=== PATIENT | female | born 1960 | race Caucasian/White ===

== ENCOUNTER → 2017-01-14 | Outpatient (CLI) | payer OTHER ==
[~2017-01-14] MED LIST: CHOL2000 PO; CLX20 PO; GABA1CAP5 PO; GLYC2TAB6 PO; HYDR0.5T PO; MELO15TA3 PO; PANT1TAB48 PO
--- NOTE | 2017-01-14 15:26 | DIAGNOSTIC IMAGING REPORT ---
LEFT FOOT 2 VIEWS CLINICAL HISTORY: First toe pain. Rheumatoid arthritis. COMPARISON: None. DISCUSSION: No acute fractures are visualized. Arthritic changes are present the level the first metatarsal phalangeal joint. There are lateral osteophytes. There are no erosive changes. IMPRESSION: Degenerative type changes at the level the first metatarsal phalangeal joint. No acute fractures. Electronically signed by: Roshan Montano M.D. 01/14/2017 3:25 PM Dictated Date/Time: 01/14/2017 3:24 PM
[2017-01-14 15:39] LABS: BASO % 0.6 %; BASO ABS # 0.05 K/uL (0-0.2); COMPLETE YES; EOS % 2.2 %; HEMATOCRIT 40.3 % (37-47); IG% 0.2 %; LYMPH % 29.8 %; LYMPH ABS # 2.62 K/uL (1.2-3.4); MEAN CELL VOLUME 92.2 fL (80-100); MEAN CORPUSCULAR HEMOGLOBIN 31.8 pg (25-34); MEAN CORPUSCULAR HGB CONC 34.5 g/dl (32-36); MEAN PLATELET VOLUME 10.6 fL (7.4-10.4); MONO % 4.2 %; PLATELET COUNT 316 K/uL (130-400); RED BLOOD COUNT 4.37 M/uL (4.2-5.4)
[2017-01-14 16:07] LABS: ALT/SGPT 16 U/L (12-78); BLOOD UREA NITROGEN 12 mg/dl (7-18); BUN/CREATININE RATIO 14.8 (10-20); CALCIUM 9.6 mg/dl (8.5-10.1); CARBON DIOXIDE 28 mmol/L (21-32); CHLORIDE 109 mmol/L (98-107); CREATININE 0.83 mg/dl (0.60-1.20); GLUCOSE 82 mg/dl (70-99); SODIUM 142 mmol/L (136-145)
[2017-01-14 16:10] LABS: ALB/GLOB RATIO 1.2 (0.9-2); ALKALINE PHOSPHATASE 50 U/L (45-117); AST/SGOT 15 U/L (15-37)
== END | disposition home or self-care (01) ==
LOC: C.RAD 14:54
PROVIDERS: ATTEND Internal Medicine
DX: M05.79 Rheumatoid arthritis with rheumatoid factor of multiple sites without organ or systems involvement (principal); Z79.899 Other long term (current) drug therapy

== ENCOUNTER 2020-03-16 11:08 | Inpatient (IN) ==
--- OUTSIDE RECORDS SUMMARY | 2020-03-16 11:10 | External Medical Summary | Continuity of Care Document ---
:1960 Author Name Chelsea Burdick, Provider Address Unavailable Unavailable , Care Team Providers Name Role Phone Catrachito Linder DO [email or web address] [email or web address] [email or web address] Unavailable Unavailable Unavailable Unavailable Unavailable Problems Nicotine dependence (305.1) (F17.200) SOB (shortness of breath) (786.05) (R06.02) Chronic cough (786.2) (R05) Allergies and Adverse Reactions Penicillins (Allergy) Medications Gabapentin 400 MG Oral Capsule; TAKE 1 CAPSULE daily Refills: 0 Robinul-Forte 2 MG TABS; TAKE 1 TABLET DAILY. Refills: 0 Hydroxychloroquine Sulfate 200 MG Oral Tablet; TAKE 1 TABLET DAILY WITH FOOD. Refills: 0 Pantoprazole Sodium 40 MG Oral Tablet Delayed Release; TAKE 1 TABLET DAILY Refills: 0 Citalopram Hydrobromide 20 MG Oral Tablet; TAKE 1 AND 1/2 TA BLETS DAILY. Refills: 0 Meloxicam 15 MG Oral Tablet; TAKE 1 TABLET DAILY. Refills: 0 Methotrexate 2.5 MG Oral Tablet; TAKE 5 TABLET WEEKLY Refills: 0 Folic Acid 1 MG Oral Tablet; TAKE 1 TABLET DAILY Refills: 0 Advair Diskus 250-50 MCG/DOSE Inhalation Aerosol Powder Breath Activated; INHALE 1 PUFF TWICE DAILY. Refills: 0 Multivitamins TABS; TAKE 1 TABLET DAILY. Refills: 0 Ventolin 90 MCG/ACT AERS; INHALE 1 TO 2 PUFFS EVERY 4 TO 6 H OURS NEEDED. Refills: 0 Procedures History of Appendectomy Status: Complete d History of Hysterectomy Status: Complete d History of Neck Surgery Status: Complete d Immunizations Immunizations not documented Social History - Smoking Status Smokes tobacco daily Plan of Treatment Planned Observations Planned Goals not documented Results No Known Results Results not documented
--- OUTSIDE RECORDS SUMMARY | 2020-03-16 11:10 | External Medical Summary | Continuity of Care Document ---
:1960 Author Name Chelsea Burdick, Provider Address Unavailable Unavailable , Care Team Providers Name Role Phone Catrachito Linder DO [email or web address] Unavailable Unavailable Unavailable Unavailable Unavailable Problems Chronic cough (786.2) (R05) SOB (shortness of breath) (786.05) (R06.02) Nicotine dependence (305.1) (F17.200) Allergies and Adverse Reactions Penicillins (Allergy) Medications Ventolin 90 MCG/ACT AERS; INHALE 1 TO 2 PUFFS EVERY 4 TO 6 H OURS NEEDED. Refills: 0 Multivitamins TABS; TAKE 1 TABLET DAILY. Refills: 0 Advair Diskus 250-50 MCG/DOSE Inhalation Aerosol Powder Breath Activated; INHALE 1 PUFF TWICE DAILY. Refills: 0 Folic Acid 1 MG Oral Tablet; TAKE 1 TABLET DAILY Refills: 0 Methotrexate 2.5 MG Oral Tablet; TAKE 5 TABLET WEEKLY Refills: 0 Meloxicam 15 MG Oral Tablet; TAKE 1 TABLET DAILY. Refills: 0 Citalopram Hydrobromide 20 MG Oral Tablet; TAKE 1 AND 1/2 TA BLETS DAILY. Refills: 0 Pantoprazole Sodium 40 MG Oral Tablet Delayed Release; TAKE 1 TABLET DAILY Refills: 0 Hydroxychloroquine Sulfate 200 MG Oral Tablet; TAKE 1 TABLET DAILY WITH FOOD. Refills: 0 Robinul-Forte 2 MG TABS; TAKE 1 TABLET DAILY. Refills: 0 Gabapentin 400 MG Oral Capsule; TAKE 1 CAPSULE daily Refills: 0 Procedures History of Appendectomy Status: Complete d History of Hysterectomy Status: Complete d History of Neck Surgery Status: Complete d Immunizations Immunizations not documented Social History - Smoking Status Smokes tobacco daily Plan of Treatment Planned Observations Planned Goals not documented Results No Known Results Results not documented
[2020-03-16] MEDS ORDERED: OPTIRAY 320 125ml IV PRN (11:23)
[2020-03-16 11:28] LABS: Basophils # (auto) 0.04 K/uL (0-0.2); Basophils % (auto) 0.5 %; Eosinophils # (auto) 0.12 K/uL (0-0.5); Eosinophils % (auto) 1.4 %; Hematocrit (blood only) 45.9 % (37-47); Hemoglobin 15.5 g/dL (12.0-16.0); Immature Granulocytes # (auto) 0.01 K/uL (0.00-0.02); Immature Granulocytes % (auto) 0.1 %; Lymphocytes # (auto) 2.38 K/uL (1.2-3.4); Lymphocytes % (auto) 28.6 %; Mean Corpuscular Hgb Conc 33.8 g/dL (32-36); Mean Corpuscular Volume 94.8 fL (80-100); Mean Platelet Volume 10.8 fL (7.4-10.4); Monocytes # (auto) 0.51 K/uL (0.11-0.59); Monocytes % (auto) 6.1 %; Neutrophils # (auto) 5.27 K/uL (1.4-6.5); Neutrophils % (auto) 63.3 %; Platelet Count 332 K/uL (130-400); RDW Coefficient of Variation 13.6 % (11.5-14.5); RDW Standard Deviation 46.9 fL (36.4-46.3); Red Blood Count 4.84 M/uL (4.2-5.4); White Blood Count 8.33 K/uL (4.8-10.8)
[2020-03-16] MEDS ORDERED: SODIUM CHLORIDE 0.9% 1000ML 1,000 ML IV SCH ×3 (11:30→15:18)
--- NOTE | 2020-03-16 11:34 | CT Scan Report ---
CT head/brain wo con CT DOSE: HISTORY: Mental status change Stroke evaluation TECHNIQUE: Multiaxial CT images of the head were performed without the use of intravenous contrast. A dose lowering technique was utilized adhering to the principles of ALARA. Comparison: 09/20/2013 Findings: The paranasal sinuses and mastoid air cells are clear. The calvarium and skull base are int act. The ventricles and sulci are within normal limits. There is no mass, hematoma, midline shift, or acute infarct. Impression: No acute intracranial abnormality. ACT 112: Negative or not required by law. The above report was generated using voice recognition software. It may contain grammatical, syntax or spelling errors. Electronically signed by: Jg Verdin M.D. 03/16/2020 11:33 AM
--- NOTE | 2020-03-16 11:39 | CT Scan Report ---
CT angio neck with con HISTORY: Mental status change Stroke evaluation TECHNIQUE: Multiaxial CT angiography of the neck was performed IV contrast: 100 cc nonionic All maya urements were calculated based on NASCET criteria. Maximum intensity projection images were also obt ained. A dose lowering technique was utilized adhering to the principles of ALARA. COMPARISON STUDY: None. FINDINGS: The aortic arch and proximal great vessels are widely patent. There is no significant sten osis, occlusion, or dissection identified within the bilateral common carotid, internal carotid, or v ertebral arteries. IMPRESSION: No significant stenosis, occlusion, or dissection identified within the carotid or vertebral arteries . ACT 112: Negative or not required by law. The above report was generated using voice recognition software. It may contain grammatical, syntax or spelling errors. Electronically signed by: Jg Verdin M.D. 03/16/2020 11:38 AM
--- NOTE | 2020-03-16 11:41 | XRay Report ---
XR chest 1V portable CLINICAL HISTORY: Cerebrovascular accident. COMPARISON STUDY: Chest radiograph October 28, 2016. FINDINGS: Lung volumes are normal. Lungs are clear. There is no pneumothorax or pleural effusion. Car diac size is normal. Mediastinal contours are normal. There is no evidence for pulmonary edema. Incid ental note is made of postoperative findings within the cervical spine. IMPRESSION: No acute cardiopulmonary findings. ACT 112: Negative or not required by law. Electronically signed by: Rupert Okeefe M.D. 03/16/2020 11:40 AM
[2020-03-16 11:43] LABS: Prothrombin Time 10.3 Seconds (9.0-12.0)
--- NOTE | 2020-03-16 11:44 | Emergency Department Note ---
History of Present Illness General Chief Complaint: Unresponsive Stated Complaint: UNRESPONSIVE Time Seen by Provider: 03/16/20 11:15 Source: patient and family Mode of arrival: wheelchair History of Present Illness Provider Complaint: + weakness, + visual disturbance and + other (Dizziness, left-sided weakness) Onset (ago): unknown Last Known Well Time: 22:00 Timing confirmed by: + family member Location: + left face, + left arm and + left leg Severity: moderate Current Pain Intensity: 0 Quality: + weak Relieved By: + none Exacerbated By: + none Treatments Prior to Arrival: + none HPI Narrative: This is a 59-year-old female who presents to the ED with a chief complaint of having a semi-unresponsive episode. The patient was found by the boyfriend's daughter ("[id number]")when she went to visit the house. The boyfriend's daughter who is also an EMT refers to her as her mom. The patient was leaned over a counter and did not respond initially. She was young and diaphoretic. She then began to respond. The EMT did an assessment and found the patient to have a left-sided facial droop as well as some left-sided arm and leg weakness. The patient told her "[id number]" that she had fallen at 6 AM this morning. She was unable to confirm this to me. The patient had a blood sugar when she came in of 91. She was transported here by private vehicle by the " [id number]". The patient reports feeling dizzy and having some blurred vision. She also reports some weakness in her left side. She has a history of COPD, rheumatoid arthritis, IBS and several surgeries. Her last known well would be 10 PM last night. Home Medications Home Medications Medication Instructions Recorded Confirmed Type cholecalciferol (vitamin D3) 125 mcg PO DAILY 03/16/20 03/16/20 History citalopram 10 mg PO DAILY 03/16/20 03/16/20 History folic acid 1 mg PO DAILY 03/16/20 03/16/20 History methotrexate sodium 12.5 mg PO WK 03/16/20 03/16/20 History Allergies Allergy/AdvReac Type Severity Reaction Status Date / Time Penicillins Allergy Severe hives and Verified 03/16/20 12:04 rash Sulfa (Sulfonamide Allergy Severe hives and Verified 03/16/20 12:04 Antibiotics) rash Past Med/Surg History Social History Feels Safe at Home: Yes Smoking Status: Current every day smoker Review of Systems A total of 10 systems reviewed and were otherwise negative Physical Exam Vital Signs: Vital Signs - 24 hr 03/16/20 11:11 03/16/20 11:14 03/16/20 11:33 Pulse Rate 74 73 74 Pulse Rate from Sp O2 Sensor 75 74 Respiratory Rate 19 20 14 Blood Pressure 154/73 H 154/73 H 144/88 H Blood Pressure Gia n 112 100 116 Pulse Oximetry 100 100 100 Oxygen Delivery Me thod Room Air Sepsis Recent Feve r Within 48 Hours No Sepsis New/Unexpla ined Change in Men naila Status No Sepsis Action Take n by Nursing No Action Required 03/16/20 11:45 03/16/20 11:50 03/16/20 12:00 Pulse Rate 71 76 67 Pulse Rate from Sp O2 Sensor 70 76 68 Respiratory Rate 19 19 14 Blood Pressure 149/101 H 159/97 H 121/77 Blood Pressure Gia n 126 140 82 Pulse Oximetry 99 100 99 Oxygen Delivery Me thod Sepsis Recent Feve r Within 48 Hours Sepsis New/Unexpla ined Change in Men naila Status Sepsis Action Take n by Nursing Physical Exam: VITAL SIGNS: were reviewed as above. GENERAL:Non-toxic in appearance. SKIN: Warm dry and pink. HEAD: Normocephalic and atraumatic. OROPHARYNX: Is clear and moist NECK: Supple without lymphadenopathy or meningismus. LUNGS: Are clear. HEART: Regular rate and rhythm. ABDOMEN: Soft and nontender. EXTREMITIES: Warm and well perfused. NEUROLOGICALLY: Awake alert and oriented. Cranial nerves grossly intact. There is left-sided pronator drift. There is also some general left-sided arm and leg weakness. Cerebellar testing is within normal limits. There is no nystagmus. There is no facial droop. Speech is clear. Vision is reported to be blurryl. Patient appears to have some overall generalized weakness. MUSCULOSKELETAL: Good muscle tone. No evidence of trauma. Strength is symmetric. ALL NURSING NOTES WERE REVIEWED. Course Administered Medications Sodium Chloride (Nss 1000ml) 1,000 mls @ 50 mls/hr IV .Q20H SUSY Stop: 04/15/20 11:29 Last Admin: 03/16/20 11:49 Dose: 50 mls/hr Documented by: [id number] Ioversol (Optiray 320 125ml) 118 ml IV ONCE PRN PRN Reason: Interaction Checking Stop: 03/20/20 11:22 Last Admin: 03/16/20 11:24 Dose: 118 ml Documented by: [id number] Medical Decision Making Differential Diagnosis Differential includes acute coronary syndrome, myocardial infarction, CVA, TIA, anemia, infection, pneumonia, UTI, pyelonephritis, poor nutrition, dehydration, electrolyte disturbance,hypoglycemia. Medical Records Attestation: I reviewed the patient's medical records. Home Medications Current Medication List: was personally reviewed by me Laboratory Data Attestation: I reviewed the patient's lab results. Result diagrams: 03/16/20 11:07 03/16/20 11:07 Lab Results 03/16/20 03/16/20 03/16/20 Range/Units 11:07 11:07 11:07 WBC 8.33 (4.8-10.8) K/uL RBC 4.84 (4.2-5.4) M/uL Hgb 15.5 (12.0-16.0) g/dL Hct 45.9 (37-47) % MCV 94.8 (80-100) fL MCH 32.0 (25-34) pg MCHC 33.8 (32-36) g/dL RDW Std Deviation 46.9 H (36.4-46.3) fL RDW Coeff of Maribell 13.6 (11.5-14.5) % Plt Count 332 (130-400) K/uL MPV 10.8 H (7.4-10.4) fL Immature Gran % (Auto) 0.1 % Neut % (Auto) 63.3 % Lymph % (Auto) 28.6 % Logan % (Auto) 6.1 % Eos % (Auto) 1.4 % Baso % (Auto) 0.5 % Immature Gran # (Auto) 0.01 (0.00-0.02) K/uL Neut # (Auto) 5.27 (1.4-6.5) K/uL Lymph # (Auto) 2.38 (1.2-3.4) K/uL Logan # (Auto) 0.51 (0.11-0.59) K/uL Eos # (Auto) 0.12 (0-0.5) K/uL Baso # (Auto) 0.04 (0-0.2) K/uL PT 10.3 (9.0-12.0) Seconds INR 1.0 (0.9-1.1) APTT 28.0 (21.0-31.0) Seconds PTT Ratio 1.0 Sodium 140 (136-145) mmol/L Potassium 4.0 (3.5-5.1) mmol/L Chloride 110 H (98-107) mmol/L Carbon Dioxide 23 (21-32) mmol/L Anion Gap 7.0 (3-11) BUN 14 (7-18) mg/dl Creatinine 0.98 (0.6-1.2) mg/dl Est Cr Clr Drug Dosing 48.9 ml/min Est GFR ( Amer) 73.2 Est GFR (Non-Af Amer) 63.1 BUN/Creatinine Ratio 14.2 (10-20) Glucose 93 (70-99) mg/dl POC Glucose (70-99) mg/dl Calcium 9.6 (8.5-10.1) mg/dl Magnesium 2.2 (1.8-2.4) mg/dl Total Bilirubin 0.5 (0.2-1) mg/dl AST 18 (15-37) U/L ALT 23 (12-78) U/L Alkaline Phosphatase 64 (45-117) U/L Troponin I < 0.015 (0-0.045) ng/ml Total Protein 7.7 (6.4-8.2) gm/dl Albumin 4.0 (3.4-5.0) gm/dl Globulin 3.7 (2.5-4.0) gm/dl Albumin/Globulin Ratio 1.1 (0.9-2) Urine Color Urine Appearance (Clear) Urine pH (4.5-7.5) Ur Specific Nelson (1.000-1.030) Urine Protein (Negative) Urine Glucose (UA) (Negative) Urine Ketones (Negative) Urine Blood (Negative) Urine Nitrite (Negative) Urine Bilirubin (Negative) Urine Urobilinogen (Negative) Ur Leukocyte Esterase (Negative) Ethyl Alcohol mg/dL (0-3) mg/dl 03/16/20 03/16/20 03/16/20 Range/Units 11:12 11:43 11:55 WBC (4.8-10.8) K/uL RBC (4.2-5.4) M/uL Hgb (12.0-16.0) g/dL Hct (37-47) % MCV (80-100) fL MCH (25-34) pg MCHC (32-36) g/dL RDW Std Deviation (36.4-46.3) fL RDW Coeff of Maribell (11.5-14.5) % Plt Count (130-400) K/uL MPV (7.4-10.4) fL Immature Gran % (Auto) % Neut % (Auto) % Lymph % (Auto) % Logan % (Auto) % Eos % (Auto) % Baso % (Auto) % Immature Gran # (Auto) (0.00-0.02) K/uL Neut # (Auto) (1.4-6.5) K/uL Lymph # (Auto) (1.2-3.4) K/uL Logan # (Auto) (0.11-0.59) K/uL Eos # (Auto) (0-0.5) K/uL Baso # (Auto) (0-0.2) K/uL PT (9.0-12.0) Seconds INR (0.9-1.1) APTT (21.0-31.0) Seconds PTT Ratio Sodium (136-145) mmol/L Potassium (3.5-5.1) mmol/L Chloride (98-107) mmol/L Carbon Dioxide (21-32) mmol/L Anion Gap (3-11) BUN (7-18) mg/dl Creatinine (0.6-1.2) mg/dl Est Cr Clr Drug Dosing ml/min Est GFR ( Amer) Est GFR (Non-Af Amer) BUN/Creatinine Ratio (10-20) Glucose (70-99) mg/dl POC Glucose 91 (70-99) mg/dl Calcium (8.5-10.1) mg/dl Magnesium (1.8-2.4) mg/dl Total Bilirubin (0.2-1) mg/dl AST (15-37) U/L ALT (12-78) U/L Alkaline Phosphatase (45-117) U/L Troponin I (0-0.045) ng/ml Total Protein (6.4-8.2) gm/dl Albumin (3.4-5.0) gm/dl Globulin (2.5-4.0) gm/dl Albumin/Globulin Ratio (0.9-2) Urine Color Yellow Urine Appearance Clear (Clear) Urine pH 7.5 (4.5-7.5) Ur Specific Nelson 1.025 (1.000-1.030) Urine Protein Negative (Negative) Urine Glucose (UA) Negative (Negative) Urine Ketones Negative (Negative) Urine Blood Negative (Negative) Urine Nitrite Negative (Negative) Urine Bilirubin Negative (Negative) Urine Urobilinogen Negative (Negative) Ur Leukocyte Esterase Negative (Negative) Ethyl Alcohol mg/dL < 3.0 (0-3) mg/dl Imaging Data Attestation: I personally reviewed and interpreted this imaging study as follows: My Impression: CT scan of the head: No acute bleed Radiologist's Impression: CT scan of the brain: No acute intracranial process CT angiogram of the head and neck:IMPRESSION: Motion degraded exam with otherwise unremarkable CTA of the head.No significant stenosis, occlusion, or dissection identified within the carotid or vertebral arteries. Chest x-ray:IMPRESSION: No acute cardiopulmonary findings. ECG Data Attestation: I personally reviewed and interpreted this ECG as follows: Indication: weakness Rate (beats per minute): 74 Rhythm: normal sinus Findings: no PVC and no ST elevation Blood Pressure Blood Pressure Findings: Elevated blood pressure Blood Pressure Disposition: further management by hospitalist Head Trauma GCS Score: 15 MDM Narrative This is a 59-year-old female who presents to the ED with a chief complaint of having a semi-unresponsive episode. The patient was found by the boyfriend's daughter ("[id number]-[id number]")when she went to visit the house. The boyfriend's daughter who is also an EMT refers to her as her mom. The patient was leaned over a counter and did not respond initially. She was young and diaphoretic. She then began to respond. The EMT did an assessment and found the patient to have a left-sided facial droop as well as some left-sided arm and leg weakness. The patient told her "[id number]" that she had fallen at 6 AM this morning. She was unable to confirm this to me. The patient had a blood sugar when she came in of 91. She was transported here by private vehicle by the " [id number]". The patient reports feeling dizzy and having some blurred vision. She also reports some weakness in her left side. She has a history of COPD, rheumatoid arthritis, IBS and several surgeries. Her last known well woul d be 10 PM last night. The patient's exam revealed some mild left-sided arm and leg weakness. She also appears to have some generalized weakness as well. She reports that her vision is slightly blurry. The patient initially could not count the number of fingers I had correctly but a minute later she was able to correctly count the numbers I held in front of her face. The patient's CT scan of the brain as well as CT Anna of the brain and neck did not show any concerning abnormalities. Chest x-ray was negative for acute disease. Twelve- lead EKG shows a sinus rhythm. CBC and chemistry panel as well as troponin were unremarkable. Alcohol was negative. The patient rarely drinks alcohol, according to family. The patient was made a stroke alert shortly after she arrived. Because her last known well was last night at 2200 hrs., the patient was not a thrombolytic candidate. The patient was seen by the tele-stroke physician, Dr. Rojas, who recommended aspirin, Plavix as well as IV fluids and keeping the head of the bed less than 30 degrees. He feels the patient may have suffered a juan j stroke. The patient will be admitted by the hospitalist service who I spoke with. Impression & Plan Left-sided weakness Critical Care Time Critical Care Time: Yes Total Critical Care Time: 35 I have personally spent 35 minutes of critical care time in the direct management of this patient. This includes bedside care, interpretation of di agnostic studies, and testing, discussion with consultants, patient, and family members, and other required patient management activities. This 30 minutes is in excess of all separately billable procedures. Discharge Plan Visit Data Chief Complaint: Unresponsive Stated Complaint: UNRESPONSIVE ED Provider: Haresh Hayden Discharge Problem: Left-sided weakness Patient Disposition: Admitted As Inpatient Forms Stand Alone Forms: My [facility] Prescriptions Prescriptions: No Action citalopram 10 mg tablet 10 mg PO DAILY RF: 0 methotrexate sodium 2.5 mg tablet 12.5 mg PO WK RF: 0 folic acid 1 mg tablet 1 mg PO DAILY RF: 0 cholecalciferol (vitamin D3) 125 mcg (5,000 unit) Tablet 125 mcg PO DAILY RF: 0 Referrals Referrals: Kenny Lujan MD [Primary Care Provider] -
--- NOTE | 2020-03-16 11:45 | CT Scan Report ---
CT angio head w con CLINICAL HISTORY: 59 years-old Female with Stroke evaluation . Acute strokelike symptoms COMPARISON STUDY: Head CT and CTA neck studies of same day TECHNIQUE: Following the IV administration of 118 cc of Optiray 320, CT angiogram of the brain was pe rformed from the skull base to the vertex. Images are reviewed in the axial, sagittal, and coronal pl anes. 3-D MIPS images are created and assessed. IV contrast was administered without complication. Al l measurements were obtained according to NASCET criteria. A dose lowering technique was utilized adh ering to the principles of ALARA. CT DOSE: 1081.53 mGy.cm FINDINGS: Motion degraded exam. The imaged bilateral internal carotid arteries are patent. The bilateral anteri or and middle cerebral arteries demonstrate subtle areas of low-grade luminal narrowing however are p atent and otherwise appear unremarkable. The vertebrobasilar system and posterior cerebral arteries a re widely patent. There is no aneurysm, high-grade stenosis, or proximal branch occlusion identified. Dural sinuses appear patent. No abnormal intracranial enhancement. IMPRESSION: Motion degraded exam with otherwise unremarkable CTA of the head. ACT 112: Negative or not required by law. The above report was generated using voice recognition software. It may contain grammatical, syntax o r spelling errors. Electronically signed by: Cj Solo M.D. 03/16/2020 11:44 AM
[2020-03-16 11:47] LABS: Alanine Aminotransferase 23 U/L (12-78); Aspartate Aminotransferase 18 U/L (15-37); BUN Creatinine Ratio 14.2 (10-20); Blood Urea Nitrogen 14 mg/dl (7-18); Calcium 9.6 mg/dl (8.5-10.1); Carbon Dioxide 23 mmol/L (21-32); Chloride 110 mmol/L (98-107); Creatinine Clr Calc Pharmacy 48.9 ml/min; Est GFR (African American) 73.2; Est GFR (Non-African American) 63.1; Glucose 93 mg/dl (70-99); Magnesium 2.2 mg/dl (1.8-2.4); Sodium 140 mmol/L (136-145)
[2020-03-16 11:52] LABS: Albumin Globulin Ratio 1.1 (0.9-2); Alkaline Phosphatase 64 U/L (45-117); Bilirubin,Total 0.5 mg/dl (0.2-1); Globulin 3.7 gm/dl (2.5-4.0); Total Protein 7.7 gm/dl (6.4-8.2); Troponin I < 0.015 ng/ml (0-0.045)
[2020-03-16 12:05] LABS: Appearance Urine Clear (Clear); Bilirubin Urine Negative (Negative); Blood Urine Negative (Negative); Color Urine Yellow; Glucose Urine UA Negative (Negative); Ketones Urine Negative (Negative); Leukocyte Esterase Urine Negative (Negative); Nitrite Urine Negative (Negative); Protein Urine Negative (Negative); Specific Gravity Urine 1.025 (1.000-1.030); Urobilinogen Urine Negative (Negative); pH Urine 7.5 (4.5-7.5)
[2020-03-16] MEDS ORDERED: CLOPIDOGREL BISULFATE 300 MG TAB PO STA (12:20)
[2020-03-16] MEDS ORDERED: ASPIRIN CHEW 324 MG PO STA (12:20)
[2020-03-16 12:24] LABS: Amphetamines+Metham, Urine Neg (Neg); Barbiturates, Urine Neg (Neg); Benzodiazepine, Urine Neg (Neg); Cocaine, Urine Neg (Neg); MDMA (Ecstacy), Urine Neg (Neg); Methadone, Urine Neg (Neg); Opiate, Urine Neg (Neg); Phencyclidine, Urine Neg (Neg)
--- NOTE | 2020-03-16 13:50 | History & Physical Report ---
Date of Service March 16, 2020 Assessment & Plan (1) Stroke-like symptoms: Pt is 59 y/o F with PMH RA, COPD, depression, tobacco use presented to ER with c/o left sided weakness. Reported dizziness, leaning to the left side during middle of night. This morning around 10AM found to be confused, delayed verbal responses, left facial droop and left arm and leg weakness. Reported unresponsive episode en route to ER In ER pt alert. Pt also states had blurred vision and c/o LARSON. Pt states was t old may have had a possible TIA several years ago. Denies fever/chills, diaphoresis, N/V/D/C, loss of vision, neck pain, CP, SOB, orthopnea, palpitations, cough, sore throat, choking, otalgia, rhinorrhea, abdominal pain, paresthesias, extremity edema, rashes, urinary symptoms. In ER vitals stable. No electrolyte abnormality, no leukocytosis, Urine drug screen +marijuana In ER pt was alert and was noted to be awake and alert, have left arm and leg weakness, left pronator drift. Reported dizziness, blurred vision and decreased sensation to left side. Tele stroke neurology Dr Rojas contacted no TPA indicated since last known well was 10PM and recommended ASA, Plavix. CT HEAD:No acute intracranial abnormality. CTA HEAD:Motion degraded exam with otherwise unremarkable CTA of the head. CTA NECK:No significant stenosis, occlusion, or dissection identified within the carotid or vertebral arteries. -Since in ER pt symptoms resolving -In ER given ASA 324mg, Plavix 300mg -Tele to monitor for arrhythmias -EKG in am -lipid and A1C, TSH, in am -MRI without contrast -echo with bubble study -aspiration precautions -PT/OT consult -start statin, plavix, ASA -neurology consult (2) Rheumatoid arthritis: Follows with Dr Cooper -On Methotrexate once weekly (3) Depression: Stable -Continue citalopram (4) Tobacco abuse: -smoking cessation encouraged -nicotine patch DVT Prophylaxis -SCDs Full Code as per discussion with pt Follows with Dr Lujan for routine care Pt was seen and care coordinated with Dr Malloy. See addendum History of Present Illness Chief Complaint: left sided weakness. Primary Care Provider: Kenny Lujan MD Pt is 59 y/o F with PMH RA, COPD, depression, tobacco use presented to ER with c/o left sided weakness. Pt states went to bed last night at 10PM and was her baseline health. She woke up at 2:30AM to urinate and when walking to bathroom noticed she was dizzy and was leaning to left side and falling to the left in the hallway. She went back to bed. Pt states she woke up this morning still feeling dizzy and thinks she fell in the house. At approx 10AM today pt's son's girlfriend came home and found pt leaning over counter seemed confused, had delayed verbal to no verbal responses and had noted left facial droop and left arm and leg weakness. She was brought to ER via private vehicle. Son's girlfriend reported on way to ER pt became unresponsive. In ER pt alert. Pt also states had blurred vision and c/o LARSON. Pt states was told may have had a possible TIA several years ago. Denies fever/chills, diaphoresis, N/V/D/C, loss of vision, neck pain, CP, SOB, orthopnea, palpitations, cough, sore throat, choking, otalgia, rhinorrhea, abdominal pain, paresthesias, extremity edema, rashes, urinary symptoms. In ER pt was alert and was noted to have left arm and leg weakness, left pronator drift. Tele stroke contacted no TPA indicated since last known well was 10PM and recommended ASA, Plavix. Since in ER pt symptoms resolving. Pt being admitted for further workup Allergies Allergy/AdvReac Type Severity Reaction Status Date / Time Penicillins Allergy Severe hives and Verified 03/16/20 12:04 rash Sulfa (Sulfonamide Allergy Severe hives and Verified 03/16/20 12:04 Antibiotics) rash Home Medications Home Medications Medication Instructions Recorded Confirmed Type albuterol sulfate 2 puff INHALATION Q6H PRN 03/16/20 03/16/20 History cholecalciferol (vitamin D3) 50 mcg PO DAILY 03/16/20 03/16/20 History [Vitamin D3] citalopram 10 mg PO DAILY 03/16/20 03/16/20 History folic acid 1 mg PO DAILY 03/16/20 03/16/20 History methotrexate sodium 12.5 mg PO WK 03/16/20 03/16/20 History Past Med/Surg History Medical History (Updated 03/16/20 @ 14:07 by Hetal Ng PA-C) COPD (chronic obstructive pulmonary disease) (Chronic) Depression H/O endoscopy (Resolved) Rheumatoid arthritis (Chronic) Tobacco abuse Surgical History (Updated 03/16/20 @ 14:05 by Hetal Ng PA-C) H/O colonoscopy (Resolved) H/O: hysterectomy (Resolved) Hx of appendectomy (Resolved) S/P tonsillectomy and adenoidectomy (Resolved) Family History (Updated 03/16/20 @ 14:06 by Hetal Ng PA-C) Other FH: Parkinson's disease Social History (Updated 03/16/20 @ 14:06 by Hetal Ng PA-C) Preferred Language: Arabic Communication Ability: Effective Beliefs That Will Affect Care: None Current Living Situation: Spouse and Family Other Information That Helps Us Care for You: No Feels Safe at Home: Yes Safety Concerns: Feels Safe At This Time Smoking Status: Current every day smoker Tobacco Type: cigarettes ; Cigarettes Per Day: 20 ; Hx Alcohol Use: No Hx Substance Use: Yes substance use type: marijuana Substance Use Type Other:: 2 times a week Review of Systems Review of Systems: All systems reviewed & are unremarkable except as noted in HPI & below Physical Exam Physical Exam: General: no distress, WDWN Head: normocephalic, atraumatic Eyes: PERRL, EOM's intact, no nystagmus, conjunctiva non-injected, anicteric ENT: normal inspection external ears, nose, mucous membranes moist Neck: supple, trachea midline, non-tender Lungs: clear, no respiratory distress, no wheezing/rhonchi/rales CV: RRR, no murmur, no JVD, no pretibial edema Abd: normal BS, soft, non-tender Ext: no cyanosis, no calf tenderness Neuro: A&O x 3, normal affect, Facial sensation is intact and symmetric, The face is strong and symmetric, Hearing grossly intact, no dysarthria, shoulder shrug intact, tongue is midline, normal movement, no fasciculations, strength 4/5 bilateral upper and lower extremities, sensation to light touch reported equal upper and lower extremities bilaterally, finger to nose intact Skin: warm, dry Results & Data Results & Data ([facility]) Vital Signs (Past 12 Hours) Vital Signs Pulse Resp BP Pulse Ox 03/16/20 13:02 66 13 99 03/16/20 12:52 67 15 124/75 99 03/16/20 12:00 67 14 121/77 99 03/16/20 11:50 76 19 159/97 H 100 03/16/20 11:45 71 19 149/101 H 99 03/16/20 11:33 74 14 144/88 H 100 03/16/20 11:14 73 20 154/73 H 100 03/16/20 11:11 74 19 154/73 H 100 Laboratory Results Short CBC 03/16/20 Range/Units 11:07 WBC 8.33 (4.8-10.8) K/uL Hgb 15.5 (12.0-16.0) g/dL Hct 45.9 (37-47) % Plt Count 332 (130-400) K/uL BMP 03/16/20 11:07 Sodium 140 Potassium 4.0 Chloride 110 H Carbon Dioxide 23 BUN 14 Creatinine 0.98 Glucose 93 Calcium 9.6 Cardiac Enzymes 03/16/20 Range/Units 11:07 Troponin I < 0.015 (0-0.045) ng/ml Liver Function 03/16/20 Range/Units 11:07 Total Bilirubin 0.5 (0.2-1) mg/dl AST 18 (15-37) U/L ALT 23 (12-78) U/L Alkaline Phosphatase 64 (45-117) U/L Albumin 4.0 (3.4-5.0) gm/dl Urine 03/16/20 Range/Units 11:55 Urine Color Yellow Urine Appearance Clear (Clear) Urine pH 7.5 (4.5-7.5) Ur Specific [place] 1.025 (1.000-1.030) Urine Protein Negative (Negative) Urine Glucose (UA) Negative (Negative) Diagnostic Findings CT HEAD: Impression: No acute intracranial abnormality. CTA HEAD: IMPRESSION: Motion degraded exam with otherwise unremarkable CTA of the head. CTA NECK: IMPRESSION: No significant stenosis, occlusion, or dissection identified within the carotid or vertebral arteries. CXR: IMPRESSION: No acute cardiopulmonary findings. Code Status & VTE Plan VTE Prophylaxis Plan VTE Prophylaxis will be ordered: Yes Supervising Physician Co-Signing Physician Notes Attending addendum The patient was seen and examined in ICU She woke up at the middle of the night and was trying to go to the bathroom when she felt dizzy and noticed that she is swaying towards left side and bumping onto st stuff She woke up this morning and the symptoms have resolved except some dizziness All of her symptoms resolved in the emergency room On examination No apparent distress at rest Hemodynamically stable Chest-clear to auscultate bilaterally Heart-S1-S2,no murmur appreciated Abdomenbenign CNSalert, awake and oriented x3. No focal sensory and/or motor deficit appreciated. Gait was not tested Her admission labs, imaging studies and EKG reviewed Likely has TIA with a similar episode in past Will get MRI of the brain Neurology evaluation We agree with assessment and plan as outlined above by ROSETTA Tinoco Dr
[2020-03-16] MEDS ORDERED: ALBUTEROL HFA 8 GM INHALER INH PRN (15:18)
[2020-03-16] MEDS ORDERED: PHARMACIST DISCHARGE MED REC CONSULT PRN (15:18)
[2020-03-16] MEDS ORDERED: ACETAMINOPHEN 325 MG TAB PO PRN (15:18)
--- NOTE | 2020-03-16 16:29 | Communication Note ---
Date of Service: March 16, 2020 I received a consult on Lore but at that point she was still in the emergency room and has not yet had her MRI scan. Her symptoms of left-sided weakness cornel ear to be improving but apparently have not resolved totally and she does have a headache and complains of some visual disturbance. She apparently had a possible TIA several years ago Her management thus far has been appropriate she is on aspirin and Plavix, was not felt to be a TPA candidate because of the unclear time of onset of symptoms (the may well have emerged during the night) My only suggestions would be to obtain an echocardiogram unless one has already been ordered (I cannot located in the order set, and I would get an EEG just because of the apparent confusion and episode of unresponsiveness described in the emergency room Dr. Bingham will be assuming the neurology consult service tomorrow and he will be able to review hopefully the results of the MRI, the echo and the EEG and then come in and assess her clinically At this point neurology has no further suggestions pending review of the diagnostic studies but I am happy to conclude that there is no significant extracranial vascular disease or intracranial vascular problem that might explain this and while this probably is a TIA/CVA in woman who has some vascular risk factors and may reflect small vessel disease the possibility of a cardiogenic embolism has not been excluded. While this may be vasospastic or migrainous that should remain the diagnosis of exclusion in this setting Jamaal Ambrosio MD
[2020-03-16] MEDS: NICOTINE 21 MG/24 HR TDSY TD SCH (17:00)
--- NOTE | 2020-03-16 18:18 | Cardiology Consultation ---
Date of Consultation March 16, 2020 Assessment & Plan (1) Cardiopathy: Patient's EKG reveals sinus rhythm with an interventricular conduction delay, and an anterior infarction pattern cannot be excluded based on poor R wave progression in the precordial leads. Per review of her EKG, she has had past conduction delay including left anterior fascicular block, and age undetermined anterior infarction pattern has been present since 2012, new since November 2011. Prior to today, the patient's most recent transthoracic echocardiogram had been in 2012 as part of a stroke/TIA work-up. Abnormal septal motion was noted, felt to be consistent with conduction delay at that time, with low normal LVEF. No interatrial shunt was detected at that time with the administration of agitated saline contrast. The echocardiogram performed today reveals an interval decline in left ventricular systolic function to the range of 25 to 30%. Abnormal septal motion is noted, septal dyskinesis, as well as hypokinesis noted elsewhere sparing the lateral wall. The pattern on the echocardiogram is diffic ult to distinguish in terms of being due to underlying conduction system disease versus an ischemic cardiomyopathy. The patient however does have significant underlying risk factors for underlying coronary heart disease including long-term cigarette smoking and rheumatoid arthritis. A lipid panel was already ordered to be performed in the fasting state tomorrow. Agree with proceeding with MRI for stroke work-up. Dizziness however could have also been related to an arrhythmia related to cardiomyopathy. I believe her volume status is euvolemic at present. She is currently receiving normal saline at 125 mL an hour, with plans to receive a liter of fluid resuscitation. She is not hypotensive, and her labs do not look like she was dehydrated. Going to reduce the rate of her fluids to 80 mils an hour x500 mL since she did just have the contrast for the CT, and then stop them in order to prevent volume overload from developing. Agree with aspirin and clopidogrel for now. Agree with her current dose of atorvastatin, 20 mg, pending lipid panel. For now I am going to monitor her heart rhythm on telemetry, to exclude bradycardia, prior to consideration of beta-haris therapy. We will reconsider addition of an ELYSE inhibitor/angiotensin receptor haris tomorrow, after her repeat chemistry panel is available since she had the contrast today. Further recommendations will be forthcoming. History of Present Illness Attending Physician: Uriel Malloy MD History of Present Illness Lore Woo is a 59-year-old female seen in cardiology consultation per the request of Dr. Malloy for the evaluation of abnormal echocardiogram, consistent with cardiomyopathy. Patient has a history of cigarette smoking, COPD, and rheumatoid arthritis. Yesterday, while doing dishes she had abrupt onset of feeling dizziness, and felt left-sided weakness. Thus far work-up included CT of the brain as well as CT angiogram of the head and neck vessels that was within normal limits. An MRI of the brain was ordered but is yet to be completed. Currently, she is feeling well, sitting comfortably. Allergies Allergy/AdvReac Type Severity Reaction Status Date / Time Penicillins Allergy Severe hives and Verified 03/16/20 12:04 rash Sulfa (Sulfonamide Allergy Severe hives and Verified 03/16/20 12:04 Antibiotics) rash Home Medications Home Medications Medication Instructions Recorded Confirmed Type albuterol sulfate 2 puff INHALATION Q6H PRN 03/16/20 03/16/20 History cholecalciferol (vitamin D3) 50 mcg PO DAILY 03/16/20 03/16/20 History [Vitamin D3] citalopram 10 mg PO DAILY 03/16/20 03/16/20 History folic acid 1 mg PO DAILY 03/16/20 03/16/20 History methotrexate sodium 12.5 mg PO WK 03/16/20 03/16/20 History Patient History Medical History COPD (chronic obstructive pulmonary disease) (Chronic) Depression H/O endoscopy (Resolved) Rheumatoid arthritis (Chronic) Tobacco abuse Surgical History H/O colonoscopy (Resolved) H/O: hysterectomy (Resolved) Hx of appendectomy (Resolved) S/P tonsillectomy and adenoidectomy (Resolved) Family History Other FH: Parkinson's disease Social History Preferred Language: Frisian Communication Ability: Effective Beliefs That Will Affect Care: None Current Living Situation: Spouse and Family Other Information That Helps Us Care for You: No Feels Safe at Home: Yes Safety Concerns: Feels Safe At This Time Smoking Status: Current every day smoker Tobacco Type: cigarettes ; Cigarettes Per Day: 20 ; Hx Alcohol Use: No Hx Substance Use: Yes substance use type: marijuana Substance Use Type Other:: 2 times a week Review of Systems Review of Systems: All systems reviewed & are unremarkable except as noted in HPI & below Cardiovascular: Denies any recent shortness of breath, chest discomfort. Denies change in activity tolerance. Physical Exam Physical Exam: Temp Pulse Resp BP Pulse Ox 36.6 C 64 18 144/47 H 99 03/16/20 15:07 03/16/20 15:39 03/16/20 15:30 03/16/20 15:07 03/16/20 15:30 Constitutional: WD/WN, vitals as above + thin Respiratory: normal respiratory effort, lungs clear to auscultation Cardiovascular: RRR, no murmur, no edema Gastrointestinal (Abdomen): normal bowel sounds, soft, nontender, no hepatosplenomegaly Neurologic: PERRL, EOMI, accommodation nl, no face palsy, no dysarthria Results & Data ([facility]) Vital Signs (Past 12 Hours) Vital Signs Temp Pulse Resp BP Pulse Ox Pulse Ox 03/16/20 15:39 64 03/16/20 15:30 66 18 99 03/16/20 15:18 98 03/16/20 15:15 64 18 99 03/16/20 15:07 36.6 C 60 17 144/47 H 99 03/16/20 15:04 72 15 03/16/20 13:02 66 13 99 03/16/20 12:52 67 15 124/75 99 03/16/20 12:00 67 14 121/77 99 03/16/20 11:50 76 19 159/97 H 100 03/16/20 11:45 71 19 149/101 H 99 03/16/20 11:33 74 14 144/88 H 100 03/16/20 11:14 73 20 154/73 H 100 03/16/20 11:11 74 19 154/73 H 100 Laboratory Results Cardiac Enzymes 03/16/20 Range/Units 11:07 AST 18 (15-37) U/L Troponin I < 0.015 (0-0.045) ng/ml Coagulation 03/16/20 Range/Units 11:07 PT 10.3 (9.0-12.0) Seconds APTT 28.0 (21.0-31.0) Seconds CBC 03/16/20 Range/Units 11:07 WBC 8.33 (4.8-10.8) K/uL RBC 4.84 (4.2-5.4) M/uL Hgb 15.5 (12.0-16.0) g/dL Hct 45.9 (37-47) % Plt Count 332 (130-400) K/uL Neut # (Auto) 5.27 (1.4-6.5) K/uL Lymph # (Auto) 2.38 (1.2-3.4) K/uL [place] # (Auto) 0.51 (0.11-0.59) K/uL Eos # (Auto) 0.12 (0-0.5) K/uL Baso # (Auto) 0.04 (0-0.2) K/uL Comprehensive Metabolic Panel 03/16/20 Range/Units 11:07 Sodium 140 (136-145) mmol/L Potassium 4.0 (3.5-5.1) mmol/L Chloride 110 H (98-107) mmol/L Carbon Dioxide 23 (21-32) mmol/L BUN 14 (7-18) mg/dl Creatinine 0.98 (0.6-1.2) mg/dl Glucose 93 (70-99) mg/dl Calcium 9.6 (8.5-10.1) mg/dl AST 18 (15-37) U/L ALT 23 (12-78) U/L Alkaline Phosphatase 64 (45-117) U/L Total Protein 7.7 (6.4-8.2) gm/dl Albumin 4.0 (3.4-5.0) gm/dl Intake and Output 03/16/20 03/16/20 03/16/20 06:59 14:59 22:59 Intake Total 1030 / 1030 Balance 1030 / 1030 Intake: IV 1000 / 1000 Nss 1000ML 1,000 ml @ 50 mls/hr 1000 / 1000 IV .Q20H [facility] Rx#:[id number] Oral Other: Weight 52.1 kg Patient Weight 03/17/20 06:59 Weight 52.1 kg
[2020-03-17 05:08] LABS: Basophils # (auto) 0.03 K/uL (0-0.2); Basophils % (auto) 0.5 %; Eosinophils # (auto) 0.17 K/uL (0-0.5); Eosinophils % (auto) 2.8 %; Hematocrit (blood only) 41.9 % (37-47); Hemoglobin 14.1 g/dL (12.0-16.0); Lymphocytes # (auto) 2.28 K/uL (1.2-3.4); Lymphocytes % (auto) 37.7 %; Mean Corpuscular Hemoglobin 31.8 pg (25-34); Mean Corpuscular Hgb Conc 33.7 g/dL (32-36); Mean Corpuscular Volume 94.4 fL (80-100); Mean Platelet Volume 10.6 fL (7.4-10.4); Monocytes # (auto) 0.44 K/uL (0.11-0.59); Monocytes % (auto) 7.3 %; Neutrophils # (auto) 3.13 K/uL (1.4-6.5); Neutrophils % (auto) 51.7 %; Platelet Count 292 K/uL (130-400); RDW Coefficient of Variation 13.6 % (11.5-14.5); RDW Standard Deviation 46.8 fL (36.4-46.3); Red Blood Count 4.44 M/uL (4.2-5.4); White Blood Count 6.05 K/uL (4.8-10.8)
[2020-03-17 05:36] LABS: Calcium 9.2 mg/dl (8.5-10.1); Creatinine Clr Calc Pharmacy 56.4 ml/min; Est GFR (African American) 86.9; Potassium 4.1 mmol/L (3.5-5.1)
[2020-03-17 05:49] LABS: Thyroid Stimulating Hormone 1.97 uIu/ml (0.300-4.500)
--- NOTE | 2020-03-17 06:32 | Electrocardiogram Report ---
Test Reason : Blood Pressure : / mmHG Vent. Rate : 074 BPM Atrial Rate : 074 BPM P-R Int : 160 ms QRS Dur : 106 ms QT Int : 406 ms P-R-T Axes : 067 -78 080 degrees QTc Int : 450 ms Normal sinus rhythm RSR' or QR pattern in V1 suggests right ventricular conduction delay Left anterior fascicular block Anterior infarct Abnormal ECG When compared with ECG of 25-Oct-2015 22:25, No significant change Confirmed by Maldonado Menon ([id number]) on 03/17/2020 6:31:42 AM Referred By: Confirmed By:Maldonado Menon
[2020-03-17 06:58] LABS: Estimated Average Glucose 114 mg/dl; Hemoglobin A1C 5.6 % (4.5-5.6)
[2020-03-17] MEDS: NICOTINE 21 MG/24 HR TDSY TD SCH (07:43)
--- NOTE | 2020-03-17 07:53 | Magnetic Resonance Report ---
Brain MRI WITHOUT CONTRAST HISTORY: Confusion. Left facial droop. Left arm weakness. stroke like symptoms TECHNIQUE: Multiplanar multisequence MRI of the brain was performed without the use of contrast. COMPARISON STUDY: Head CT 03/08/2020. Brain MRI 09/20/2013. FINDINGS: There are no areas of restricted diffusion to suggest acute infarction. The midline structu res are intact. The paranasal sinuses are clear. The mastoid air cells are clear. The ventricles and sulci are within normal limits for age. There is no mass, hematoma, midline shift. The major vascular flow-voids at the skull base are well maintained. There again noted multiple scattered punctate foci of T2 hyperintensity seen within the periventricular and subcortical white matter of the supratentor ial brain. This is nonspecific but favors microvascular ischemic change. This is similar to the prior study. IMPRESSION: 1. No significant change compared to the prior study. No acute intracranial abnormality. 2. There again noted multiple scattered punctate foci of T2 hyperintensity seen within the periventri cular and subcortical white matter of the supratentorial brain. This is nonspecific but favors microv ascular ischemic change. This is similar to the prior study. ACT 112: Negative or not required by law. Electronically signed by: Cliff Pedro M.D. 03/17/2020 7:52 AM
[2020-03-17] MEDS ORDERED: ASPIRIN 81 MG ECTAB PO SCH (09:00)
[2020-03-17] MEDS ORDERED: CITALOPRAM 20 MG TAB PO SCH (09:00)
[2020-03-17] MEDS ORDERED: CLOPIDOGREL BISULFATE 75 MG TAB PO SCH (09:00)
[2020-03-17] MEDS ORDERED: ATORVASTATIN 20 MG TAB PO SCH (09:00)
[2020-03-17] MEDS ORDERED: FOLIC ACID 1 MG TAB PO SCH (09:00)
--- NOTE | 2020-03-17 11:18 | Cardiology Progress Note ---
Date of Service March 17, 2020 Assessment & Plan (1) Cardiopathy: (2) Pericardial effusion: (3) Rheumatoid arthritis: MRI of the brain was normal. Small anterior loculated pericardial effusion noted on repeat echocardiogram images this am (better demonstrated on present study compared to the 03/16 study) -asymptomatic , perhaps related to her RA. Cardiac findings very well me incidental , not related to chief complain. Severe LV systolic dysfunction, no symptoms suggestive of angina or CHF symptoms. Plan to start low dose metoprolol, lisinopril. Mild dyslipidemia, start rosuvastatin. Rosuvastatin chosen to reduce risk of muscle ache related side effects. Plan for cardiology followup, consider lexiscan nuclear stress at follow up. If has recurrent near syncope, consider Zio monitor. Stable from my standpoint for discharge if OK with the primary service. Subjective CC: follow up , near syncope Subjective: Patient feeling well. Eager to go home. Telemetry reveals SR with IVCD. No AF noted. Physical Exam Physical Exam: Temp Pulse Resp BP Pulse Ox 36.7 C 80 18 113/72 95 03/17/20 08:00 03/17/20 05:00 03/17/20 08:00 03/17/20 08:00 03/17/20 08:00 Constitutional: WD/WN, vitals as above Respiratory: normal respiratory effort, lungs clear to auscultation Cardiovascular: RRR, no murmur, no edema Gastrointestinal (Abdomen): normal bowel sounds, soft, nontender, no hepato splenomegaly Neurologic: PERRL, EOMI, accommodation nl, no face palsy, no dysarthria Results & Data Vital Signs (Past 12 Hours) Vital Signs Temp Pulse Resp BP BP Pulse Ox 03/17/20 08:00 36.7 C 18 113/72 95 03/17/20 05:00 80 22 03/17/20 04:58 36.8 C 81 17 121/62 98 03/17/20 04:45 75 18 03/17/20 04:30 65 20 03/17/20 00:00 60 03/16/20 23:30 36.5 C 68 18 135/73 98 Laboratory Results Cardiac Enzymes 03/16/20 Range/Units 11:07 AST 18 (15-37) U/L Troponin I < 0.015 (0-0.045) ng/ml Coagulation 03/16/20 Range/Units 11:07 PT 10.3 (9.0-12.0) Seconds APTT 28.0 (21.0-31.0) Seconds Lipids 03/17/20 Range/Units 04:49 Triglycerides 78 (0-150) mg/dl Cholesterol 174 (0-200) mg/dl HDL Cholesterol 51 mg/dl Cholesterol/HDL Ratio 3 CBC 03/16/20 03/17/20 Range/Units 11:07 04:49 WBC 8.33 6.05 (4.8-10.8) K/uL RBC 4.84 4.44 (4.2-5.4) M/uL Hgb 15.5 14.1 (12.0-16.0) g/dL Hct 45.9 41.9 (37-47) % Plt Count 332 292 (130-400) K/uL Neut # (Auto) 5.27 3.13 (1.4-6.5) K/uL Lymph # (Auto) 2.38 2.28 (1.2-3.4) K/uL [place] # (Auto) 0.51 0.44 (0.11-0.59) K/uL Eos # (Auto) 0.12 0.17 (0-0.5) K/uL Baso # (Auto) 0.04 0.03 (0-0.2) K/uL Comprehensive Metabolic Panel 03/16/20 03/17/20 Range/Units 11:07 04:49 Sodium 140 141 (136-145) mmol/L Potassium 4.0 4.1 (3.5-5.1) mmol/L Chloride 110 H 112 H (98-107) mmol/L Carbon Dioxide 23 24 (21-32) mmol/L BUN 14 15 (7-18) mg/dl Creatinine 0.98 0.85 (0.6-1.2) mg/dl Glucose 93 85 (70-99) mg/dl Calcium 9.6 9.2 (8.5-10.1) mg/dl AST 18 (15-37) U/L ALT 23 (12-78) U/L Alkaline Phosphatase 64 (45-117) U/L Total Protein 7.7 (6.4-8.2) gm/dl Albumin 4.0 (3.4-5.0) gm/dl Intake and Output 03/16/20 03/17/20 03/17/20 22:59 06:59 14:59 Intake Total 1907.5 / 2207.5 300 / 2207.5 Balance 1907.5 / 2207.5 300 / 2207.5 Intake: IV 1637.5 / 1637.5 Nss 1000ML 1,000 ml @ 80 mls/hr 1637.5 / 1637.5 IV .[id number] [facility] Rx#:[id number] Oral 270 / 570 300 / 570 Other: # Unmeasured Voids 1 1 Weight 53.3 kg
[2020-03-17] MEDS ORDERED: ROSUVASTATIN CALCIUM 5 MG TAB PO SCH (11:30)
[2020-03-17] MEDS ORDERED: METOPROLOL SUCC 25MG EXT REL TAB PO SCH (11:30)
--- NOTE | 2020-03-17 12:10 | Hospitalist Progress Note ---
Date of Service March 17, 2020 Assessment & Plan (1) Stroke-like symptoms: Pt is 59 y/o F with PMH RA, COPD, depression, tobacco use presented to ER with c/o left sided weakness. Reported dizziness, leaning to the left side during middle of night. This morning around 10AM found to be confused, delayed verbal responses, left facial droop and left arm and leg weakness. Reported unresponsive episode en route to ER In ER pt alert. Pt also states had blurred vision and c/o LARSON. Pt states was t old may have had a possible TIA several years ago. Denies fever/chills, diaphoresis, N/V/D/C, loss of vision, neck pain, CP, SOB, orthopnea, palpitations, cough, sore throat, choking, otalgia, rhinorrhea, abdominal pain, paresthesias, extremity edema, rashes, urinary symptoms. In ER vitals stable. No electrolyte abnormality, no leukocytosis, Urine drug screen +marijuana In ER pt was alert and was noted to be awake and alert, have left arm and leg weakness, left pronator drift. Reported dizziness, blurred vision and decreased sensation to left side. Tele stroke neurology Dr Rojas contacted no TPA indicated since last known well was 10PM and recommended ASA, Plavix. CT HEAD:No acute intracranial abnormality. CTA HEAD:Motion degraded exam with otherwise unremarkable CTA of the head. CTA NECK:No significant stenosis, occlusion, or dissection identified within the carotid or vertebral arteries. Neuro symptoms completely resolved MRI of the head unremarkable except nonspecific microvascular ischemic changes in the supra cortical periventricular region Echo of the heart-as below EEG-results pending Appreciate neurology input and recommendation PT/OT and speech evaluation have been done She will be discharged this afternoon Cardiomyopathy With small anterior loculated pericardial effusion Echo-normal myocardial thickness is noted in segments with normal wall motion, LV systolic function is severely reduced with EF of 25 to 30%, diffuse hypokinesis to dyskinesis, sparing the lateral wall there is no apical mural thrombus and there is a small loculated anterior pericardial effusion without any tamponade Appreciate cardiology input and recommendation She can be discharged home today and will have cardiology follow-up following discharge (2) Rheumatoid arthritis: Follows with Dr Cooper -On Methotrexate once weekly -No acute flareup of the arthritis -We will continue current medications (3) Depression: Stable -Continue citalopram (4) Tobacco abuse: -smoking cessation encouraged -nicotine patch -Strongly advised to quit smoking DVT Prophylaxis -SCDs Full Code as per discussion with pt Follows with Dr Lujan for routine care Discharge home this afternoon Admission and Anticipated Discharge Date Admission Date: March 16, 2020 Subjective The patient was seen and examined in ICU He was admitted with dizziness and swelling towards the left side with ambulation Did have some weakness involving left side as well Denies any cardiac symptoms Review of Systems Review of Systems: All systems reviewed and are unremarkable except as noted below Constitutional: + weakness Cardiovascular: + dyspnea on exertion and + lightheadedness; no chest pain and no edema Physical Exam Physical Exam: Lying in bed comfortably Constitutional: + thin; no acute distress and not ill appearing Eyes: PERRL, conjunctivae normal, anicteric sclerae ENMT: external ear and nose normal, oropharynx normal Neck: trachea midline, no thyromegaly Respiratory: normal respiratory effort; no respiratory distress Auscultation: lungs clear to auscultation bilaterally Cardiovascular: Rate/Rhythm: regular rate and regular rhythm Heart Sounds: no murmur Gastrointestinal (Abdomen): Inspection/Auscultation: abdomen normal to inspection and normal bowel sounds; abdomen not distended Percussion/Palpation: abdomen soft; abdomen nontender Musculoskeletal: No acute arthritis involving any joints Neurologic: moves all extremities; no focal motor deficits Alert, awake and oriented x3. Results & Data Results & Data ([facility]) Vital Signs (Past 12 Hours) Vital Signs Temp Pulse Resp BP BP Pulse Ox 03/17/20 11:44 36.4 C L 03/17/20 08:00 36.7 C 18 113/72 95 03/17/20 05:00 80 22 03/17/20 04:58 36.8 C 81 17 121/62 98 03/17/20 04:45 75 18 03/17/20 04:30 65 20 Laboratory Results Short CBC 03/17/20 Range/Units 04:49 WBC 6.05 (4.8-10.8) K/uL Hgb 14.1 (12.0-16.0) g/dL Hct 41.9 (37-47) % Plt Count 292 (130-400) K/uL BMP 03/17/20 04:49 Sodium 141 Potassium 4.1 Chloride 112 H Carbon Dioxide 24 BUN 15 Creatinine 0.85 Glucose 85 Calcium 9.2 Urine 05/28/20 Range/Units 11:55 Urine Color Yellow Urine Appearance Clear (Clear) Urine pH 7.5 (4.5-7.5) Ur Specific [place] 1.025 (1.000-1.030) Urine Protein Negative (Negative) Urine Glucose (UA) Negative (Negative) Medications Administered Current Inpatient Medications Acetaminophen (Tylenol) 650 mg PO Q4H PRN PRN Reason: Pain or Fever Stop: 04/15/20 15:17 Albuterol (Ventolin Hfa) 2 puffs INH Q6H PRN PRN Reason: Shortness Of Breath Or Wheezing Stop: 04/15/20 15:17 Aspirin (Ecotrin Ectab) 81 mg PO [facility] Stop: 04/16/20 08:59 Last Admin: 03/17/20 07:43 Dose: 81 mg Documented by: Citalopram Hydrobromide (Celexa) 10 mg PO DAILY [facility] Stop: 04/16/20 08:59 Last Admin: 03/17/20 07:42 Dose: 10 mg Documented by: [facility]) [facility] Stop: 04/16/20 08:59 Last Admin: 03/17/20 07:43 Dose: 75 mg Documented by: Folic Acid (Folvite) 1 mg PO DAILY [facility] Stop: 04/16/20 08:59 Last Admin: 03/17/20 07:43 Dose: 1 mg Documented by: Lisinopril (Zestril) 2.5 mg PO [facility] Stop: 04/16/20 11:29 Last Admin: 03/17/20 11:56 Dose: 2.5 mg Documented by: Methotrexate (Methotrexate) 12.5 mg PO We@0900 [facility] Stop: 04/21/20 08:59 Metoprolol Succinate (Toprol Xl) 12.5 mg PO [facility] Stop: 04/16/20 11:29 Last Admin: 03/17/20 11:56 Dose: 12.5 mg Documented by: Miscellaneous (Remove Nicoderm Patch) 1 ea N/A DAILY@0859 [facility] Stop: 04/16/20 08:58 Last Admin: 03/17/20 07:42 Dose: 1 ea Documented by: Miscellaneous Information (Pharmacist Discharge Med Rec Consult) 1 ea N/A UD PRN PRN Reason: Consult Stop: 04/15/20 15:17 Nicotine (Nicoderm Cq) 21 mg TD [facility] Stop: 04/15/20 15:17 Last Admin: 03/17/20 07:43 Dose: 21 mg Documented by: Rosuvastatin Calcium (Crestor) 5 mg PO [facility] Stop: 04/17/20 08:59
[2020-03-17] MEDS ORDERED: STROKE PATIENT DISCHARGE STA (14:19)
--- NOTE | 2020-03-17 15:17 | Pharmacy Report ---
Pharmacist Stroke Counseling - Date of Service March 17, 2020 - Scope: Pharmacy has been consulted to provide medication discharge counseling for this patient admitted with CVA/TIA as per the Pharmacist Discharge Counseling for Stroke Patients Protocol. - Medications on Discharge: Home Medications Medication Instructions Recorded Confirmed albuterol sulfate 2 puff INHALATION Q6H PRN 03/16/20 03/16/20 cholecalciferol (vitamin D3) 50 mcg PO DAILY 03/16/20 03/16/20 [Vitamin D3] citalopram 10 mg PO DAILY 03/16/20 03/16/20 folic acid 1 mg PO DAILY 03/16/20 03/16/20 methotrexate sodium 12.5 mg PO WK 03/16/20 03/16/20 New Rx's Medication Instructions Recorded aspirin 81 mg PO QAM 30 Days #30 tab 03/17/20 clopidogrel 75 mg PO QAM 30 Days #30 tab 03/17/20 lisinopril 2.5 mg PO QAM 30 Days #30 tab 03/17/20 metoprolol succinate 12.5 mg PO QAM 30 Days #15 tab 03/17/20 nicotine [Nicoderm CQ] 21 mg TRANSDERMAL QAM 30 Days #30 03/17/20 ea rosuvastatin [Crestor] 5 mg PO QAM 30 Days #30 tab 03/17/20 - Action: The above medications, specifically ones for stroke treatment/prophylaxis, have been reviewed in detail with the patient and/or patient guest service representative(s) prior to discharge. This includes indication, common adverse reactions, drug interactions, and medication administration. Medication counseling has been employed using the teach-back method to ensure understanding. - Outcome: The patient and/or patient guest service representative(s) have demonstrated understanding of the medications. Additional comments: Reviewed new medications to prevent stroke (ASA/Plavix/Crestor). Answered patient's questions regarding nicotine patch. Advised she remove the patch at bedtime if she notices that she has sleep disturbances, nightmares, vivid dreams. Pt asked if she should remove nicotine patch if she wants to smoke. She did state she is very motivated to stop smoking and plans to quit given the recent events. I advised that the occasional cigarette is okay while wearing the patch with the ultimate goal being to quit smoking with time. Removing the patch to smoke will not greatly alter the dose of nicotine she receives but she should try to minimize smoking as much as possible, 1-2 cigarettes per day if possible with ultimate plan to phase out smoking. Advised patient she is to continue taking both the baby aspirin and clopidogrel until she is told otherwise by her PCP or Neurologist. I advised that some patients do only use these medications for 3 wks or 3 months but that length of treatment has yet to be determined (I have f/u with Dr Malloy and these were his instructions). Pt was advised to be vigilant for abnormal bleeding and to notify dentist and all treating physicians of these new meds as they place her at risk for bleeding in certain procedures. Also advised pt of statin associated side effects and what to monitor and when to notify physician. Advised that her statin dose might be increased in future if she tolerates the lower dose. Pt was provided a pillbox to use on discharge as she is starting multiple new meds (6 in total). She states she thinks she has a system that prevents her from missing medication doses, but would be willing to try a pillbox. All questions answered. Patient advised to contact [facility] nurse outreach case manager if she has difficulty obtaining her meds. Thank you for allowing pharmacy to be involved in the care of this patient. Please call [phone] or [phone] with any additional questions
--- NOTE | 2020-03-17 15:40 | Electroencephalogram ---
EEG Procedure Note Date of Service March 17, 2020 Start / End Times Start Time: 06:02 End Time: 06:[address] Jamaal Ambrosio History A 59 year old woman with loss of consciousness. EEG performed for evaluation of epileptiform activity. Home Medication List Home Medications Medication Instructions Recorded Confirmed Type albuterol sulfate 2 puff INHALATION Q6H PRN 03/16/20 03/16/20 History cholecalciferol (vitamin D3) 50 mcg PO DAILY 03/16/20 03/16/20 History [Vitamin D3] citalopram 10 mg PO DAILY 03/16/20 03/16/20 History folic acid 1 mg PO DAILY 03/16/20 03/16/20 History methotrexate sodium 12.5 mg PO WK 03/16/20 03/16/20 History aspirin 81 mg PO QAM 30 Days #30 tab 03/17/20 Rx clopidogrel 75 mg PO QAM 30 Days #30 tab 03/17/20 Rx lisinopril 2.5 mg PO QAM 30 Days #30 tab 03/17/20 Rx metoprolol succinate 12.5 mg PO QAM 30 Days #15 tab 03/17/20 Rx nicotine [Nicoderm CQ] 21 mg TRANSDERMAL QAM 30 Days #30 03/17/20 Rx ea rosuvastatin [Crestor] 5 mg PO QAM 30 Days #30 tab 03/17/20 Rx Inpatient Medication List Aspirin (Ecotrin Ectab) 81 mg PO QAM [facility] Stop: 04/16/20 08:59 Last Admin: 03/17/20 07:43 Dose: 81 mg Documented by: [id number] Citalopram Hydrobromide (Celexa) 10 mg PO DAILY [facility] Stop: 04/16/20 08:59 Last Admin: 03/17/20 07:42 Dose: 10 mg Documented by: [id number] Clopidogrel Bisulfate (Plavix) 75 mg PO QAM [facility] Stop: 04/16/20 08:59 Last Admin: 03/17/20 07:43 Dose: 75 mg Documented by: [id number] Folic Acid (Folvite) 1 mg PO DAILY [facility] Stop: 04/16/20 08:59 Last Admin: 03/17/20 07:43 Dose: 1 mg Documented by: [id number] Lisinopril (Zestril) 2.5 mg PO QAM [facility] Stop: 04/16/20 11:29 Last Admin: 03/17/20 11:56 Dose: 2.5 mg Documented by: [id number] Metoprolol Succinate (Toprol Xl) 12.5 mg PO [facility] Stop: 04/16/20 11:29 Last Admin: 03/17/20 11:56 Dose: 12.5 mg Documented by: [id number] Miscellaneous (Remove Nicoderm Patch) 1 ea N/A DAILY@0859 [facility] Stop: 04/16/20 08:58 Last Admin: 03/17/20 07:42 Dose: 1 ea Documented by: [id number] Nicotine (Nicoderm Cq) 21 mg TD [facility] Stop: 04/15/20 15:17 Last Admin: 03/17/20 07:43 Dose: 21 mg Documented by: [id number] Admin: 03/16/20 17:00 Dose: 21 mg Documented by: [id number] Discontinued Medications Aspirin (Aspirin) 324 mg PO [facility] Stop: 03/16/20 12:21 Last Admin: 03/16/20 13:30 Dose: 324 mg Documented by: [id number] Atorvastatin Calcium (Lipitor) 20 mg PO [facility] Stop: 04/16/20 08:59 Last Admin: 03/17/20 07:43 Dose: 20 mg Documented by: [id number] Clopidogrel Bisulfate (Plavix) 300 mg PO [facility] Stop: 03/16/20 12:21 Last Admin: 03/16/20 13:30 Dose: 300 mg Documented by: [id number] Sodium Chloride (Nss 1000ml) 1,000 mls @ 50 mls/hr IV .Q20H [facility] Stop: 04/15/20 11:29 Last Infusion: 03/16/20 17:38 Dose: 0 mls/hr Documented by: [id number] Admin: 03/16/20 11:49 Dose: 50 mls/hr Documented by: [id number] Sodium Chloride (Nss 1000ml) 1,000 mls @ 125 mls/hr IV .Q8H [facility] Stop: 04/15/20 12:29 Last Admin: 03/16/20 17:39 Dose: Not Given Documented by: [id number] Sodium Chloride (Nss 1000ml) 1,000 mls @ 80 mls/hr IV .[id number] [facility] Stop: 03/16/20 21:32 Last Infusion: 03/16/20 22:34 Dose: 0 mls/hr Documented by: [id number] Admin: 03/16/20 17:28 Dose: 125 mls/hr Documented by: [id number] Ioversol (Optiray 320 125ml) 118 ml IV ONCE PRN PRN Reason: Interaction Checking Stop: 03/20/20 11:22 Last Admin: 03/16/20 11:24 Dose: 118 ml Documented by: [id number] Description This is a 21 electrode EEG with a single channel dedicated to limited EKG. The electrodes were placed in accordance with the International 10-20 system. REPORT: At the onset of the EEG, the patient is awake. The background activity consist of 10 Hz, persistent, posteriorly dominant, moderate amplitude, symmetric and rhythmic activity that is reactive to eye opening. Anteriorly, it consist of a mixture of low voltage indeterminate activity and 15-25 Hz, persistent, low amplitude, symmetric and rhythmic activity. Stepwise intermittent photic stimulation does not induce any abnormalities. Drowsiness is characterized by low amplitude mixed frequency activity, roving eye movements, and decreased eye blinking and muscle artifact. IMPRESSION: This is a normal awake and drowsy EEG. There is no evidence of focal slowing or epileptiform activityRachel mendes
[2020-03-18 01:35] LABS: Marijuana Quant, GCMS Urine 28 ng/mL (<5)
[2020-03-18] MEDS ORDERED: ROSUVASTATIN CALCIUM 5 MG TAB PO SCH (09:00)
--- NOTE | 2020-03-18 09:15 | Discharge Summary ---
Date of Service March 18, 2020 Admission HPI Per Admitting Provider Pt is 59 y/o F with PMH RA, COPD, depression, tobacco use presented to ER with c/o left sided weakness. Pt states went to bed last night at 10PM and was her baseline health. She woke up at 2:30AM to urinate and when walking to bathroom noticed she was dizzy and was leaning to left side and falling to the left in the hallway. She went back to bed. Pt states she woke up this morning still feeling dizzy and thinks she fell in the house. At approx 10AM today pt's son's girlfriend came home and found pt leaning over counter seemed confused, had delayed verbal to no verbal responses and had noted left facial droop and left arm and leg weakness. She was brought to ER via private vehicle. Son's girlfriend reported on way to ER pt became unresponsive. In ER pt alert. Pt also states had blurred vision and c/o LARSON. Pt states was told may have had a possible TIA several years ago. Denies fever/chills, diaphoresis, N/V/D/C, loss of vision, neck pain, CP, SOB, orthopnea, palpitations, cough, sore throat, choking, otalgia, rhinorrhea, abdominal pain, paresthesias, extremity edema, rashes, urinary symptoms. In ER pt was alert and was noted to have left arm and leg weakness, left pronator drift. Tele stroke contacted no TPA indicated since last known well was 10PM and recommended ASA, Plavix. Since in ER pt symptoms resolving. Pt being admitted for further workup Admission Exam Per Admitting Provider Physical Exam: General: no distress, WDWN Head: normocephalic, atraumatic Eyes: PERRL, EOM's intact, no nystagmus, conjunctiva non-injected, anicteric ENT: normal inspection external ears, nose, mucous membranes moist Neck: supple, trachea midline, non-tender Lungs: clear, no respiratory distress, no wheezing/rhonchi/rales CV: RRR, no murmur, no JVD, no pretibial edema Abd: normal BS, soft, non-tender Ext: no cyanosis, no calf tenderness Neuro: A&O x 3, normal affect, Facial sensation is intact and symmetric, The face is strong and symmetric, Hearing grossly intact, no dysarthria, shoulder shrug intact, tongue is midline, normal movement, no fasciculations, strength 4/5 bilateral upper and lower extremities, sensation to light touch reported equal upper and lower extremities bilaterally, finger to nose intact Skin: warm, dry Principal Diagnosis Strokelike symptoms-resolved, cardiomyopathy, dizziness likely secondary to cardiac condition, rheumatoid arthritis, depression Discharge Exam Constitutional + thin; no acute distress and not ill appearing Eyes PERRL, conjunctivae normal, anicteric sclerae ENMT external ear and nose normal, oropharynx normal Neck trachea midline, no thyromegaly Respiratory normal respiratory effort; no respiratory distress Auscultation: lungs clear to auscultation bilaterally Cardiovascular Rate/Rhythm: regular rate and regular rhythm Heart Sounds: no murmur Gastrointestinal (Abdomen) Inspection/Auscultation: abdomen normal to inspection and normal bowel sounds; abdomen not distended Percussion/Palpation: abdomen soft; abdomen nontender Neurologic moves all extremities; no focal motor deficits Discharge Data Allergies Allergy/AdvReac Type Severity Reaction Status Date / Time Penicillins Allergy Severe hives and Verified 03/16/20 12:04 rash Sulfa (Sulfonamide Allergy Severe hives and Verified 03/16/20 12:04 Antibiotics) rash Consultations 03/16/20 15:18 Consult Case Management - Discharge Planning Routine Consult Neurology Routine 03/16/20 17:29 Consult Cardiology Routine Ordered Studies 03/16/20 11:16 CT angio head w con Stat CT angio neck with con Stat CT head/brain wo con Stat 03/16/20 14:33 MR brain wo con Routine Hospital Course (1) Stroke-like symptoms: Pt is 59 y/o F with PMH RA, COPD, depression, tobacco use presented to ER with c/o left sided weakness. Reported dizziness, leaning to the left side during middle of night. This morning around 10AM found to be confused, delayed verbal responses, left facial droop and left arm and leg weakness. Reported unresponsive episode en route to ER In ER pt alert. Pt also states had blurred vision and c/o LARSON. Pt states was told may have had a possible TIA several years ago. Denies fever/chills, diaphoresis, N/V/D/C, loss of vision, neck pain, CP, SOB, orthopnea, palpitations, cough, sore throat, choking, otalgia, rhinorrhea, abdominal pain, paresthesias, extremity edema, rashes, urinary symptoms. In ER vitals stable. No electrolyte abnormality, no leukocytosis, Urine drug screen +marijuana In ER pt was alert and was noted to be awake and alert, have left arm and leg weakness, left pronator drift. Reported dizziness, blurred vision and decreased sensation to left side. Tele stroke neurology Dr Rojas contacted no TPA indicated since last known well was 10PM and recommended ASA, Plavix. CT HEAD:No acute intracranial abnormality. CTA HEAD:Motion degraded exam with otherwise unremarkable CTA of the head. CTA NECK:No significant stenosis, occlusion, or dissection identified within the carotid or vertebral arteries. Neuro symptoms completely resolved MRI of the head unremarkable except nonspecific microvascular ischemic changes in the supra cortical periventricular region Echo of the heart-as below EEG-results pending Appreciate neurology input and recommendation PT/OT and speech evaluation have been done She will be discharged this afternoon Cardiomyopathy With small anterior loculated pericardial effusion Echo-normal myocardial thickness is noted in segments with normal wall motion, LV systolic function is severely reduced with EF of 25 to 30%, diffuse hypokinesis to dyskinesis, sparing the lateral wall there is no apical mural thrombus and there is a small loculated anterior pericardial effusion without any tamponade Appreciate cardiology input and recommendation She can be discharged home today and will have cardiology follow-up following discharge (2) Rheumatoid arthritis: Follows with Dr Cooper -On Methotrexate once weekly -No acute flareup of the arthritis -We will continue current medications (3) Depression: Stable -Continue citalopram (4) Tobacco abuse: -smoking cessation encouraged -nicotine patch -Strongly advised to quit smoking DVT Prophylaxis -SCDs Full Code as per discussion with pt Follows with Dr Lujan for routine care Discharge home this afternoon Total Time Total Time Spent Total Time Spent (In Minutes): 35 minutes Total Time Includes: Examination of the Patient, Discharge Planning, Medication Reconciliation and Communication With Other Providers Discharge Plan Discharge Items Patient Disposition: Home - Self-Care Reason For Visit: STROKE LIKE SYMPTOMS Discharge Diagnosis: Strokelike symptoms-resolved, cardiomyopathy, dizziness likely secondary to cardiac condition, rheumatoid arthritis, depression Condition on Discharge: Fair Activity: Resume your previous activity Non-emergency contact: Primary Care Provider Call non-emergency contact if: you have any medication questions Follow-up/Referrals: Kenny Lujan MD [Primary Care Provider] - 03/21/20 11:20 am (03/21/2020 11:20 AM Provider Kenny Lujan MD Department [facility] Cardiology appointment is with Roro Sanchez on 14 April at 2:45 PM. Neurology appointment is with Ronda Stover on 12 April at 10:25 AM. We need to put on a Zeo Patch. Cardiology will call with an appointment ) Diet: Heart Healthy Addtl Attending Provider Instructions: Please take precaution to avoid fall Please quit smoking-nicotine patch has been prescribed Continue Plavix and aspirin for now until you are seen by the neurologist as a follow-up in 3 to 4 weeks Pending Studies at Discharge: No Stand-Alone Forms: Medications to Prevent Stroke, [facility], Smoking Cessation Medications and DC Order Prescriptions: New nicotine [Nicoderm CQ] 21 mg/24 hr Patch 24 Hour 21 mg transdermal QAM 30 Days Qty: 30 RF: 0 clopidogrel 75 mg Tablet 75 mg PO QAM 30 Days Qty: 30 RF: 0 aspirin 81 mg Tablet,Delayed Release (Dr/Ec) 81 mg PO QAM 30 Days Qty: 30 RF: 0 metoprolol succinate 25 mg Tablet Extended Release 24 Hr 12.5 mg PO QAM 30 Days Qty: 15 RF: 0 lisinopril 2.5 mg Tablet 2.5 mg PO QAM 30 Days Qty: 30 RF: 0 rosuvastatin [Crestor] 5 mg Tablet 5 mg PO QAM 30 Days Qty: 30 RF: 0 Continued citalopram 10 mg tablet 10 mg PO DAILY RF: 0 methotrexate sodium 2.5 mg tablet 12.5 mg PO WK RF: 0 folic acid 1 mg tablet 1 mg PO DAILY RF: 0 albuterol sulfate 90 mcg/actuation Hfa Aerosol Inhaler 2 puff INHALATION Q6H PRN (Reason: Shortness Of Breath Or Wheezing) RF: 0 cholecalciferol (vitamin D3) [Vitamin D3] 25 mcg (1,000 unit) Tablet 50 mcg PO DAILY RF: 0 Discharge Orders: Discharge Order (Routine); Ordered 03/17/20 Ordered By: Uriel Malloy Admission Data Admit Date/Time: 03/16/20 12:52 Attending Provider: Uriel Malloy Admit Provider: Uriel Malloy Primary Care Provider: Kenny Lujan Other Providers: Jamaal Ambrosio ; Zuhair Ambriz Other Interventions: Discharge Summary Assessment (RN) Last Done: 03/17/20 15:21 DC Date/Time DO NOT enter until pt leaves facility: 03/17/20 16:01
[2020-03-22] MEDS ORDERED: metHOTREXate sodium 2.5 MG TAB PO SCH (09:00)
--- NOTE | 2020-03-28 06:20 | Coding Query ---
CODING QUERY To promote full compliance with coding requirements relating to patient care, provider participation is requested in all cases of remote inpatient coder uncertainty. Please assist us with the question(s) below: Coding Question(s): Please clarify if TIA was ruled out? Strokelike symptoms resolved. Possible TIA has been ruled out. Physician's Response(s): Thank you Eunice Coelho Principal Diagnosis: "that condition established after study, to be chiefly responsible for occasioning the admission of the patient to the hospital for care." Co-Existing Principal Diagnosis: "when two or more diagnoses equally meet the criteria for principal diagnosis as determined by the circumstances of admission, diagnostic work up, and/or therapy provided, and the Alphabetic Index, Tabular List, or another coding guideline does not provide sequencing direction, any one of the diagnoses may be sequenced first." "When the physician has documented what appears to be a current diagnosis in the body of the record, but has not included the diagnosis in the final diagnostic statement, the physician should be asked whether the diagnosis should be added." (Source [facility] QTR90. p3-4) CELESTE
== END 2020-03-17 16:01 | disposition home or self-care (01) | DRG 948 ==
LOC: ED 11:08 → 1E 12:52